=== PATIENT | female | born 1995 | race Caucasian/White ===

== ENCOUNTER 2017-03-18 16:00 | Emergency (ER) | payer BC ==
[~2017-03-18] VITALS: Ht 177.8 cm; Wt 145.8 kg
[2017-03-18] MEDS ORDERED: LARIN FE 1.5-31 EACH PO (16:53)
[2017-03-18] MEDS ORDERED: ONDANSETRON HCL8 MG PO (16:54)
[2017-03-18] MEDS ORDERED: FLONASE16 G1 BOTH NARES (16:54)
[2017-03-18] MEDS ORDERED: SERTRALINE HCL50 MG PO (16:54)
[2017-03-18] MEDS ORDERED: BENTYL20 MG PO (16:55)
[2017-03-18] MEDS ORDERED: ZOFRAN ODT4 MG PO (18:00)
[2017-03-18] MEDS ORDERED: FIORICET 50-301 EACH PO (18:00)
[2017-03-18] MEDS ORDERED: MOTRIN800 MG PO (18:00)
[2017-03-18 18:27] VITALS: BP 142/86
== END 2017-03-18 18:27 | disposition home or self-care (01) ==
LOC: EME 16:00
DX: S06.0X0A Concussion without loss of consciousness, initial encounter (principal); S63.502A Unspecified sprain of left wrist, initial encounter; S00.81XA Abrasion of other part of head, initial encounter; W01.190A Fall on same level from slipping, tripping and stumbling with subsequent striking against furniture, initial encounter; K21.9 Gastro-esophageal reflux disease without esophagitis
CPT/HCPCS: 73110; 99281; 99283

== ENCOUNTER 2017-05-29 01:07 | Emergency (ER) | payer BC ==
[~2017-05-29] VITALS: Ht 177.8 cm; Wt 137.6 kg
[~2017-05-29 01:07] MED LIST: BENTYL20 MG PO; FIORICET 50-301 EACH PO; FLONASE16 G1 BOTH NARES; LARIN FE 1.5-31 EACH PO; MOTRIN800 MG PO; ONDANSETRON HCL8 MG PO; SERTRALINE HCL50 MG PO; ZOFRAN ODT4 MG PO
[2017-05-29] MEDS ORDERED: ALLEGRA ALLERGY60 MG PO (02:01)
[2017-05-29] MEDS ORDERED: BENADRYL50 MG PO (02:02)
[2017-05-29] MEDS ORDERED: MELATONIN10 M1 PO (02:02)
[2017-05-29 04:16] LABS: INTERNAL CONTROL VALID? YES
[2017-05-29] MEDS ORDERED: ZOFRAN ODT4 MG PO (05:24)
[2017-05-29] MEDS ORDERED: ZANTAC150 MG PO (05:25)
[2017-05-29 05:37] LABS: ADD MIUA? YES; BILIRUBIN SMALL; BLOOD LARGE; COLOR AMBER ((YELLOW)); GLUCOSE (STRIP) NEGATIVE; KETONES 20; LEUKOCYTES MODERATE; NITRITE NEGATIVE; PROTEIN (STRIP) 100; SPECIFIC GRAVITY 1.034 (1.000-1.030)
[2017-05-29] MEDS ORDERED: MACROBID100 MG PO (05:46)
[2017-05-29 05:56] LABS: BACTERIA 2+ /HPF; EPITHELIAL CELLS 4+ /HPF; MUCUS 4+ /LPF; RED BLOOD CELLS TNTC /HPF (0-5); UCUL ADDED? YES; WHITE BLOOD CELLS TNTC /HPF (0-5)
[2017-05-29] MEDS ORDERED: KEFLEX500 MG PO (06:08)
[2017-05-29 06:12] VITALS: BP 145/85
== END 2017-05-29 06:16 | disposition home or self-care (01) ==
LOC: EME 01:07
PROVIDERS: Emergency Medicine
DX: N39.0 Urinary tract infection, site not specified (principal); K52.9 Noninfective gastroenteritis and colitis, unspecified; E86.0 Dehydration; R51 Headache
CPT/HCPCS: 81003; 84703; 87086; 99281; 99284

== ENCOUNTER → 2017-06-29 | Outpatient (CLI) | payer BC ==
[~2017-06-29] MED LIST changes: +ALLEGRA ALLERGY60 MG PO; +BENADRYL50 MG PO; +KEFLEX500 MG PO; +MACROBID100 MG PO; +MELATONIN10 M1 PO; +ZANTAC150 MG PO
== END | disposition home or self-care (01) ==
LOC: NUC 08:30
DX: R10.13 Epigastric pain (principal); R11.0 Nausea
CPT/HCPCS: 78264; A9541

== ENCOUNTER 2017-10-05 08:23 | Day surgery (SDC) | payer BC ==
[~2017-10-05] VITALS: Ht 177.8 cm; Wt 131.5 kg
[~2017-10-05 08:23] MED LIST changes: +LOESTRIN FE 1.1 EACH PO; +NEXIUM40 MG PO; +ZOFRAN8 MG PO; +ZOLOFT50 MG PO
[2017-10-05 09:02] VITALS: BP 169/93
[2017-10-05] MEDS ORDERED: NORCO 5/3251 TABLET PO (10:36)
[2017-10-05 12:22] VITALS: BP 139/73
[2017-10-05 13:30] VITALS: BP 169/88
[2017-10-05 15:25] VITALS: BP 176/90
== END 2017-10-05 15:25 | disposition home or self-care (01) ==
LOC: SDC 08:23
PROC: 0FT44ZZ Resection of Gallbladder, Percutaneous Endoscopic Approach (ICD-10-PCS; principal; 2017-10-05)
DX: K80.10 Calculus of gallbladder with chronic cholecystitis without obstruction (principal); K76.0 Fatty (change of) liver, not elsewhere classified; Z88.2 Allergy status to sulfonamides; K21.9 Gastro-esophageal reflux disease without esophagitis; E66.9 Obesity, unspecified; Z68.41 Body mass index [BMI] 40.0-44.9, adult
CPT/HCPCS: 88304; J0330; J1100; J1170; J1885; J2250; J2405; J2710; J3010; S0074